=== PATIENT | female | born 1985 | race Caucasian/White ===

== ENCOUNTER 2019-07-01 15:51 | Emergency (ER) | payer SELFPAY ==
--- NOTE | 2019-07-01 16:55 | UC ---
Throat Pain/Nasal [place] HPI - HPI Summary HPI Summary: Sinus congestion, lyons, and sore throat x2 days. she will be flying to [place] and wants to make sure she doesn't get her grandmother sick. eating and drinking normally. nothing makes it better/worse. - History of Current Complaint Chief Complaint: UCRespiratory Stated Complaint: SORE THROAT Time Seen by Provider: 07/01/19 16:40 Hx Obtained From: Patient Cough: None Associated Signs & Symptoms: Negative: Dysphagia, Drooling - Allergies/Home Medications Allergies/Adverse Reactions: Allergies Allergy/AdvReac Type Severity Reaction Status Date / Time No Known Allergies Allergy Verified 07/01/19 17:09 Home Medications: Home Medications NK [No Home Medications Reported] 07/01/19 [History Confirmed 07/01/19] PMH/Surg Hx/FS Hx/Imm Hx - Additional Past Medical History Additional PMH: no chronic illness Previously Healthy: Yes - Surgical History Surgical History: Unable to Obtain/Confirm - Family History Known Family History: Positive: Non-Contributory - Social History Lives: With Family Review of Systems All Other Systems Reviewed And Are Negative: Yes Constitutional: Negative: Fever, Chills, Fatigue Skin: Negative: Rash ENT: Positive: Sore Throat, Sinus Congestion. Negative: Ear Ache, Nasal Discharge, Sinus Pain/Tenderness Respiratory: Negative: Shortness Of Breath, Cough Neurological: Positive: Headache Physical Exam Triage Information Reviewed: Yes Appearance: Well-Appearing Vital Signs Reviewed: Yes ENT: Positive: Nasal congestion, TMs normal, Uvula midline. Negative: Sinus tenderness Neck: Positive: Supple Respiratory Exam: Normal Cardiovascular Exam: Normal Skin: Negative: Rashes Throat Pain/Nasal Course/Dx - Course Course Of Treatment: viral pharyngitis w/ some sinusitis. good vitals. self limiting. exam unremarkable. discussed comfort measures and gave her mask so she can wear on plane. no signs of strep etiology. no indication for antibx. - Differential Dx/Diagnosis Differential Diagnosis/HQI/PQRI: Pharyngitis, URI, Other Provider Diagnosis: Viral pharyngitis Discharge ED - Sign-Out/Discharge Documenting (check all that apply): Patient Departure All imaging exams completed and their final reports reviewed: No Studies - Discharge Plan Condition: Good Disposition: HOME Patient Education Materials: Pharyngitis (ED) Referrals: Demar Gillespie DO [Primary Care Provider] - Additional Instructions: Please use mask when on the plane or visiting grandmother if you are still sick. - Billing Disposition and Condition Condition: GOOD Disposition: Home - Attestation Statements Provider Attestation: I was available for consult. This patient was seen by the STEPHEN. The patient was not presented to , seen by or examined by -Carlene Ac MD
[2019-07-01 17:09] VITALS: BP 127/75
== END 2019-07-01 17:44 | disposition home or self-care (01) ==
LOC: UCCORT 15:51
DX: J02.9 Acute pharyngitis, unspecified (principal); R51 Headache; R09.81 Nasal congestion; J34.89 Other specified disorders of nose and nasal sinuses
CPT/HCPCS: 99211; G0463